=== PATIENT | male | born 1985 ===

== ENCOUNTER → 2020-01-04 | Outpatient (CLI) | payer OTHER | LOC: COL.RAD 09:24 | DX: S06.9X9S Unspecified intracranial injury with loss of consciousness of unspecified duration, sequela (principal); G93.0 Cerebral cysts ==

== ENCOUNTER → 2020-05-09 | Outpatient (CLI) | payer OTHER | LOC: COL.RAD 09:00 | DX: S06.9X9S Unspecified intracranial injury with loss of consciousness of unspecified duration, sequela (principal); G93.0 Cerebral cysts | CPT/HCPCS: A9585 ==